=== PATIENT | male | born 1985 | race Caucasian/White ===

== ENCOUNTER 2023-06-29 21:05 | Emergency (ER) | payer SELFPAY ==
--- NOTE | 2023-06-29 21:22 | ED_ITS ---
HPI - General Adult General Chief complaint: Shortness of Breath/Dyspnea Stated complaint: TB EXPOSURE-COUGH Time Seen by Provider: 06/29/23 21:22 History of Present Illness HPI narrative: Patient presents to emergency department for possible tuberculosis exposure. Patient's son was exposed to his mom 3 weeks ago. He states the patient's mom did not have any cough or fever or anything such as a upper respiratory infection for respiratory problem however she was either tested for tuberculosis or had a skin condition which was found to be Mycobacterium for which she is being treated but she is noncontagious and has paperwork that she showed the patient that she is noncontagious. However the patient is concerned about the Possible exposure of his child and himself through his child. The patient himself denies any cough, fever, or chills. He states he has a history of ALLERGIES. Denies any shortness of breath. Denies any nausea, vomiting, diarrhea, abdominal pain, rashes. Related Data Home Medications Medication Instructions Recorded Confirmed No Known Home Medications 06/29/23 06/29/23 Allergies Allergy/AdvReac Type Severity Reaction Status Date / Time No Known Drug Allergies Allergy Verified 06/29/23 21:29 Review of Systems ROS Status of ROS 10 or more systems reviewed and unremarkable except as noted in history and below [facility] Social History Smoking status: Current every day smoker Exam Narrative Exam Narrative: Nurses notes and vital signs reviewed and patient is not hypoxic. General: Nontoxic, Well-appearing and in no apparent distress. Skin: Warm, dry, no pallor noted. No Rash Head: Normocephalic, atraumatic. Neck: Supple, non-tender. Eye: Pupils are equal, round and EOMI. No scleral icterus. Ears, Nose, Mouth, and Throat: TM clear, no posterior oropharynx erythema or nasal mucosal hypertrophy, uvula is mid-line Oral mucosa is moist Cardiovascular: Regular Rate and Rhythm without murmur, gallop or rub. Respiratory: No accessory muscle use or respiratory distress. Lungs are clear to auscultation, no wheezing, rales or rhonchi Chest Wall: no tenderness Back: No midline thoracic or lumbar vertebral tenderness. No CVA tenderness Musculoskeletal: normal ROM, no calf or popliteal tenderness, no lower extremity edema/swelling GI: Abdomen is soft, non-distended. Normal bowel sounds. No masses appreciated. No tenderness to palpation. No rebound, guarding, or rigidity noted. Neurological: A&O x4. No cranial nerve dysfunction observed. No truncal ataxia. Moves all extremities. Sensation intact. Psychiatric: Cooperative and interactive. Normal mood and affect. Constitutional Vital Signs, click to edit/add: Last Vital Signs Temp 98.2 F 06/29/23 21:25 Pulse 86 06/29/23 21:25 Resp 18 06/29/23 21:25 BP 129/94 H 06/29/23 21:25 Pulse Ox 97 06/29/23 21:25 O2 Del Method Room Air 06/29/23 21:25 Course Vital Signs Vital signs: Vital Signs Temperature 98.2 F 06/29/23 21:25 Pulse Rate 86 06/29/23 21:25 Respiratory Rate 18 06/29/23 21:25 Blood Pressure 129/94 H 06/29/23 21:25 Pulse Oximetry 97 06/29/23 21:25 Oxygen Delivery Method Room Air 06/29/23 21:25 Temperature 98.2 F 06/29/23 21:25 Pulse Rate 86 06/29/23 21:25 Respiratory Rate 18 06/29/23 21:25 Blood Pressure 129/94 H 06/29/23 21:25 Pulse Oximetry 97 06/29/23 21:25 Oxygen Delivery Method Room Air 06/29/23 21:25 Medical Decision Making MDM Narrative Medical decision making narrative: Chest x-ray was done and is unremarkable. I advised the patient follow up with primary care doctor in the health department to discuss skin test. At this time the patient is without objective evidence of an acute process requiring hospitalization or inpatient management. The patient has remained hemodynamically stable. No additional indication for emergent studies at this time. I answered all questions. Discussed discharge instructions including standard anticipatory guidance and what should prompt a return to the emergency department, including if they get worse are not getting better or develops any new or concerning symptoms. I've given them specific time frame in which to follow-up, and who to follow-up with. The patient demonstrates understanding. Patient is nontoxic and stable for discharge with outpatient follow-up. This note was created with the assistance of a speech recognition program. Although the intention is to generate documents that actually reflects the content of the visit, no guarantees can be provided that every mistake has been identified and corrected by editing. Discharge Plan Discharge Chief Complaint: Shortness of Breath/Dyspnea Clinical Impression: Tuberculosis contact Patient Disposition: Home, Self-Care Time of Disposition Decision: 23:07 Condition: Good Mode of Transportation: Private Vehicle Prescriptions / Home Meds: No Action No Known Home Medications Instructions: Tuberculosis (DC) Additional Instructions: Follow-up with primary care doctor or the local health department for tuberculosis skin test. Stand Alone Forms: Portal Instructions Referrals: Rea James MD [Primary Care Provider] - 1 week TIGRE RUIZ APRN [Physician] - 1 week BUDDY ROSA [Physician] - 1 week Discharge Date/Time: 06/29/23 23:17
--- NOTE | 2023-06-29 21:22 | XR_ITS ---
The [address] [address] Patient Name: EUGENE JHA MRN: [id number] date: 1985 Sex: M Assigned Patient Location: ED.MAIN Current Patient Location: ER Accession/Order Number: [id number] Exam Date: 06/29/2023 22:00 Report Date: 06/29/2023 22:51 At the request of: DIANA NIETO Procedure: XR chest 1V EXAM: XR chest 1V HISTORY: cough, tb exposure COMPARISON: None. TECHNIQUE: Single frontal view FINDINGS: The cardiovascular silhouette is normal. Lung garvin are well-expanded and clear. Pleural spaces are clear. The bony structures are unremarkable. XR/XR chest 1V IMPRESSION: No evidence for acute cardiopulmonary disease. Electronically authenticated by: Berhane COTTER Date: 06/29/2023 22:51
[2023-06-29 21:25] VITALS: BP 129/94; PULSE 86; RESP 18; TEMP 36.8; O2SAT 97; BMI 33.9
--- NOTE | 2023-06-29 22:31 | PC.NURSE ---
states his ex was recently diagnosed with TB, states he has had a cough for past 2 weeks and is not sure if that could be related to exposure or allergies. denies any other symptoms.
== END 2023-06-29 23:17 | disposition home or self-care (01) ==
PROVIDERS: Emergency Provider Emergency Medicine; PCP Specialist
DX: Z20.1 Contact with and (suspected) exposure to tuberculosis (principal); F17.210 Nicotine dependence, cigarettes, uncomplicated
CPT/HCPCS: 71045; 99283

== ENCOUNTER 2023-10-22 08:16 | Emergency (ER) | payer SELFPAY ==
[2023-10-22 08:22] VITALS: BP 118/88; PULSE 86; RESP 18; TEMP 36.8; O2SAT 98; BMI 33.9
--- NOTE | 2023-10-22 08:35 | ED.SKABFB1 ---
HPI - Skin/Abscess/Foreign Bdy General Chief complaint: Skin/Abscess/Foreign Body Stated complaint: RASh Time Seen by Provider: 10/22/23 08:18 Source: patient Mode of arrival: walk-in Limitations: no limitations History of Present Illness HPI narrative: 38-year-old male presents for rash on his hands and his feet. It's been there for a few days. He has none in his mouth, no fever. It's continuous. He is some [id number] medications but it didn't help. Related Data Home Medications Medication Instructions Recorded Confirmed No Known Home Medications 06/29/23 06/29/23 Allergies Allergy/AdvReac Type Severity Reaction Status Date / Time No Known Drug Allergies Allergy Verified 06/29/23 21:29 Review of Systems ROS Narrative A ten point review of systems is negative except as noted above. PFSH PFSH Social History Smoking status: Current some day smoker Exam Narrative Exam Narrative: Nurses note and vital signs reviewed and patient is not hypoxic. General: The patient appears well and in no apparent distress. Patient is resting comfortably on cart. Skin: Warm, dry, no pallor noted. There is erythematous rash present on the palms of his hands and the soles of his feet. None in his mouth. Head: Normocephalic, atraumatic Eye: Normal conjunctiva, no drainage Ears, Nose, Mouth, and Throat: oral mucosa is moist. Nares patent. Cardiovascular: Regular Rate and Rhythm Respiratory: Patient is in no distress, no accessory muscle use, lungs are clear to auscultation, no wheezing, rales or rhonchi Back: non-tender GI: soft and nontender Musculoskeletal: The patient has no evidence of calf tenderness, no pitting edema, symmetrical pulses noted bilaterally Neurological: A&O, normal speech Psychiatric: Cooperative Constitutional Vital Signs, click to edit/add: Last Vital Signs Temp 98.2 F 10/22/23 08:22 Pulse 86 10/22/23 08:22 Resp 18 10/22/23 08:22 BP 118/88 10/22/23 08:22 Pulse Ox 98 10/22/23 08:22 O2 Del Method Room Air 10/22/23 08:22 Course Vital Signs Vital signs: Vital Signs Temperature 98.2 F 10/22/23 08:22 Pulse Rate 86 10/22/23 08:22 Respiratory Rate 18 10/22/23 08:22 Blood Pressure 118/88 10/22/23 08:22 Pulse Oximetry 98 10/22/23 08:22 Oxygen Delivery Method Room Air 10/22/23 08:22 Temperature 98.2 F 10/22/23 08:22 Pulse Rate 86 10/22/23 08:22 Respiratory Rate 18 10/22/23 08:22 Blood Pressure 118/88 10/22/23 08:22 Pulse Oximetry 98 10/22/23 08:22 Oxygen Delivery Method Room Air 10/22/23 08:22 MDM - Skin/Abscess/Foreign Bdy MDM Narrative Medical decision making narrative: my clinical impression is that the patient and his hand foot and mouth disease. Treatment diagnosis and follow-up were discussed with the patient. Differential Diagnosis Differential diagnosis: Likely abscess of skin or subcutaneous tissue, viral exanthem and urticaria Discharge Plan Discharge Chief Complaint: Skin/Abscess/Foreign Body Clinical Impression: Hand, foot and mouth disease Patient Disposition: Home, Self-Care Time of Disposition Decision: 08:34 Condition: Good Mode of Transportation: Private Vehicle Prescriptions / Home Meds: No Action No Known Home Medications Instructions: Hand, Foot, and Mouth Disease (ED) Stand Alone Forms: Portal Instructions Referrals: Physician,Non-Staff, MD [Primary Care Provider] - 1 week
== END 2023-10-22 08:40 | disposition home or self-care (01) ==
PROVIDERS: Emergency Provider Emergency Medicine
DX: B08.4 Enteroviral vesicular stomatitis with exanthem (principal); F17.210 Nicotine dependence, cigarettes, uncomplicated
CPT/HCPCS: 99281

== ENCOUNTER 2024-03-06 21:43 | Emergency (ER) | payer SELFPAY ==
[2024-03-06 21:46] VITALS: BP 149/82; PULSE 120; TEMP 38.2; O2SAT 98; BMI 34.9
--- OUTSIDE RECORDS SUMMARY | 2024-03-06 21:49 | XMS_ITS | CCD ---
Author Organization [facility] Care Team Providers Care Director Of Construction Name Role Phone Chloe Graff Unavailable KatelynStephenie sanches Unavailable DR ENID GUERRERO Primary Care Unavailable RABIA ., DR DELGADILLO Admitting Unavailable RABIA ., DR DELGADILLO Consulting Unavailable RABIA Harrell, DR DELGADILLO Attending Unavailable LAXMI ., DR ENID Lee Primary Care Unavailable SIENNA POON Admitting Unavailable SIENNA POON Consulting Unavailable SIENNA POON Attending Unavailable Michelle Pak Attending Unavailable Allergies Allergy Classification Reported Allergen(s) Allergy Type Date of Onset Reaction(s) Facility (1 source) No Known Medication Allergies; Translations: [No Known Medication Allergies] Propensity to adverse reactions (disorder) [facility] Repository Medications Current Medications Medication Drug Class(es) Dates Sig (Normalized) Sig (Original) brompheniramine maleate 0.4 mg/ml / dextromethorphan hydrobromide 2 mg/ml / pseudoephedrine hydrochloride 6 mg/ml oral solution (1 source) alpha-Adrenergic Agonist, Uncompetitive G-fabsat-N-aspartat e Receptor Antagonist, Sigma-1 Agonist Start: 10-03-2022 take 10 mL by mouth every six hours Pseudoeph-Bromp hen-DM 30-2-10 MG/5ML 10 mL Orally every 6 hours for 5 days Sep, Active Problems Active Problems Problem Classification Problem Date Documented Da te Episodic/Chronic Inflammation; infection of eye (except that caused by tuberculosis or sexually transmitteddisease) (1 source) Other mucopurulent conjunctivitis, right eye; Translations: [OTH MUCOPURULNT CONJUNCTIVIT RT EYE] Onset: 04-08-2023 Episodic Other eye disorders (3 sources) Other specified disorders of eye and adnexa; Translations: [OTHER SPEC DISORDERS EYE AND ADNEXA] Onset: 04-07-2023 Episodic Other lower respiratory disease (2 sources) Cough; Translations: [Cough] Episodic Other upper respiratory infections (2 sources) Acute upper respiratory infection, unspecified Episodic Substance-related disorders (2 sources) Nicotine dependence, cigarettes, uncomplicated; Translations: [NICOTINE DEPEND CIGARETTES UNCOMP] Onset: 09-01-2022 Chronic Past or Other Problems Problem Classification Problem Date Documented Date Episodic/Chronic Nausea and vomiting (3 sources) Nausea with vomiting, unspecified; Translations: [NAUSEA WITH VOMITING UNSPECIFIED] Onset: 08-29-2022 Episodic Noninfectious gastroenteritis (1 source) Noninfective gastroenteritis and colitis, unspecified; Translations: [NONINFECTIVE GE AND COLITIS UNS] Onset: 09-01-2022 Episodic Unclassified (2 sources) Exposure to acute respiratory syndrome coronavirus 2; Translations: [Contact with and (suspected) exposure to covid-19] Unclassified (2 sources) Cough R05.9 Results Test Name Value Interpretation Reference Range Facil ity RAD - MISCon 06-30-2023 RAD - MISC [id number]: 127 Normal [facility] COVID + FLU Quick Testingon 11-08-2022 SARS-CoV-2 (COVID-19) RNA YURIDIA+probe Ql (Unsp spec) Negative [email or web address] Other COVID + FLU Quick Testing Negative [email or web address] Other COVID Quick Testingon 2021 Result Negative [email or web address] Other Vital Signs Date Time Vital Sign Value Performing Clinician Facility 11-08-2022 12:45-0500 Body height 165.1 cm Stephenie Zepeda Other [email or web address] Other 11-08-2022 12:45-0500 Body mass index (BMI) [Ratio] 33.78 kg/m2 Stephenie Zepeda Other [email or web address] Other 11-08-2022 12:45-0500 Body temperature 96.7 [degF] Stephenie Zepeda Other [email or web address] Other 11-08-2022 12:45-0500 Body weight 92.08 kg Stephenie Zepeda Other [email or web address] Other 11-08-2022 12:45-0500 Respiratory rate 18 /min Stephenie Zepeda Other [email or web address] Other 11-08-2022 12:45-0500 SaO2% (BldA) [Mass fraction] 99 % Stephenie Zepeda Other [email or web address] Other 10-03-2022 11:50-0400 Body height 165.1 cm Chloe Graff Other [email or web address] Other 10-03-2022 11:50-0400 Body mass index (BMI) [Ratio] 33.78 kg/m2 Chloe Graff Other [email or web address] Other 10-03-2022 11:50-0400 Body temperature 98.1 [degF] Chloe Graff Other [email or web address] Other 10-03-2022 11:50-0400 Body weight 92.08 kg Chloe Graff Other [email or web address] Other 10-03-2022 11:50-0400 Respiratory rate 18 /min Chloe Graff Other [email or web address] Other 10-03-2022 11:50-0400 SaO2% (BldA) [Mass fraction] 97 % Chloe Graff Other [email or web address] Other Encounters Encounter Date Encounter Type Care Provider Facility Start: 04-07-2023 End: 04-07-[address] ENID HAIR . Facility: Start: 03-02-2023 End: 03-03-2023 ambulatory Michelle L Pasha [facility] Start: 02-24-2023 ambulatory Michelle Pasha Facility:[facility] Start: 11-08-2022 End: 11-08-2022 ambulatory Stephenie Zepeda Other [email or web address] Other Start: 11-08-2022 Office outpatient vi sit 25 minutes Stephenie Katelyn [facility] Start: 10-03-2022 End: 10-03-2022 ambulatory Chloe Graff Other [email or web address] Other Start: 10-03-2022 Office outpatient vi sit 25 minutes Chloe Graff [facility] Start: 08-29-2022 End: 08-29-[address] ENID HAIR . Facility: Payers Date Payer Category Payer Unknown [id number] [id number] 1985 Unknown [id number] 1985 Unknown [id number] 1985 Unknown [id number] 1960 Self-pay [id number] Self-pay Social History Date Type Detail Facility Unknown if ever smoked [email or web address] Other Sex Assigned At Sex Assigned At Bir th [email or web address] Other Evaluation note 11-08-2022 Note Date & Type Note Facility 11-08-2022 Evaluation note Encounter Date Diagnosis Assessment Notes Oct, Cough (ICD-10 - R05.9) Oct, Viral upper respiratory infection (ICD-10 - J06.9) Viral upper respiratory infection: adult home care material was printed Drink plenty fluids, get plenty of rest. Take Tylenol or Motrin as needed for aches pains or fevers. Follow-up with your family physician if no improvement in 2 to 3 days [email or web address] Other Evaluation note 10-03-2022 Note Date & Type Note Facility 10-03-2022 Evaluation note Encounter Date Diagnosis Assessment Notes Sep, Cough (ICD-10 - R05.9) Sep, Viral URI (ICD-10 - J06.9) Advised patient that rapid COVID antigen test was negative today. Advised patient that will treat as viral URI. Supportive care as directed, increase fluids and rest, Tylenol/Motrin as directed, rx of Bromfed cool mist humidifier, throat lozenges. Discussed infection control practices such as good hand washing and mask wearing. Patient to follow up with PCP if symptoms persist or worsen despite treatment. Immediate eval for SOB, difficulty, chest pain, fevers that do not break with antipyretic or any other concerning symptoms as reviewed on patient education handout. Patient verbalizes understanding and is agreeable to treatment plan. Patient left in stable condition [email or web address] Other Summary Purpose Family History No Family History Records FoundNo Family History Records Found Advance Directives No Advanced Directives Records FoundNo Advanced Directives Records Found Additional Source Comments REASON FOR VISIT (unrecogniz ed section and content) SORE THROAT, NAUSEA, FEVERWH ITE MALIBU, COUGH, SORE THROAT, FEVER, CONGESTION (unrecognized sect ion and content) No Status Records FoundNo Status Records Found INFORMATION SOURCE (unrecogn ized section and content) DATE CREATED AUTHOR 04/09/2023 [facility] DATE CREATED AUTHOR AUTHOR'S ORGANIZ ATION 06/30/2023 [facility] FOR RECORDS PERTAINING TO PATIENTS WHO ARE OR HAVE BEEN ENROLLED IN A CHEMICAL DEPENDENCY/SUBSTANCEABUSE PROGRAM, SOME INFORMATION MAY BE OMITTED. This clinical summary was aggregated from multiple sources. Caution should be exercised in using it in the provision of clinical care. This summary normalizes information from multiple sources, and as a consequence, information in this document may materially change the coding, format and clinical context of patient data. In addition, data may be omitted in some cases. CLINICAL DECISIONS SHOULD BE BASED ON THE PRIMARY CLINICAL RECORDS. [employer] [facility]. provides no warranty or guarantee of the accuracy or completeness of information in this document.
--- NOTE | 2024-03-06 22:47 | ED.GENADUL1 ---
HPI HPI - General Adult General Chief complaint: Upper Respiratory Infection Stated complaint: FLU LIKE SYMPTOMS Time Seen by Provider: 03/06/24 22:43 Source: patient and family Mode of arrival: walk-in Limitations: no limitations History of Present Illness HPI narrative: patient presents complaining of flu like symptoms. States similar symptoms at least 3 times in the past couple of weeks. [place] well last PM and then today vomiting and diarrhea. Last episode of diarrhea this AM but recurrent nausea and vomiting during the day. No nausea currently. Has body aches and fever. No cough. Related Data Home Medications ?Medication ?Instructions ?Recorded ?Confirmed No Known Home Medications 06/29/23 03/06/24 Allergies Allergy/AdvReac Type Severity Reaction Status Date / Time No Known Drug Allergies Allergy Verified 03/06/24 21:46 Opioid HPI Opioid Management Most Recent Opioid Data: Last Pain Scale 5 03/06/24 22:21 Last ED Pain Assessment 03/06/24 22:21 Last MAR Pain Assessment 03/07/24 00:16 Review of Systems ROS Status of ROS 10 or more systems reviewed and unremarkable except as noted in history and below PFSH PFS Social History Smoking status: Current some day smoker Exam Constitutional Vital Signs, click to edit/add: Last Vital Signs Temp 99.9 F 03/07/24 01:12 Pulse 114 H 03/07/24 01:12 Resp 16 03/07/24 01:12 BP 120/80 03/07/24 01:12 Pulse Ox 96 03/07/24 01:12 O2 Del Method Room Air 03/07/24 01:12 Common normals: no apparent distress, average body habitus, oriented x3, no limitations, healthy appearing, alert and well nourished [facility] Common normals: normocephalic and head/scalp atraumatic Eye Common normals: EOMs intact bilaterally and conjunctivae normal Respiratory Common normals: normal respiratory effort, no retractions and no use of accessory muscles Cardio Common normals: regular rate, regular rhythm, S1 normal heart sound and S2 normal heart sound GI Common normals: Normal to inspection, nondistended, normoactive bowel sounds present, soft to palpation and non-tender Extremity Common normals: normal to inspection and full ROM Neuro Common normals: oriented x3, CN's II-XII intact bilaterally, moves all extremities and no focal motor deficits Psych Appearance: grossly normal Course Vital Signs Vital signs: Vital Signs Temperature 100.7 F H 03/06/24 21:46 Pulse Rate 120 H 03/06/24 21:46 Respiratory Rate 20 03/06/24 21:46 Blood Pressure 149/82 H 03/06/24 21:46 Pulse Oximetry 98 03/06/24 21:46 Oxygen Delivery Method Room Air 03/06/24 21:46 Temperature 99.9 F 03/07/24 01:12 Pulse Rate 114 H 03/07/24 01:12 Respiratory Rate 16 03/07/24 01:12 Blood Pressure 120/80 03/07/24 01:12 Pulse Oximetry 96 03/07/24 01:12 Oxygen Delivery Method Room Air 03/07/24 01:12 Medical Decision Making MDM Narrative Medical decision making narrative: patient presents with abdominal cramping and vomiting diarrhea. Diarrhea has eased off but vomiting several times today before coming in. Abdomen nontender. labs with leukocytosis, dehydration and elevated lactic acid. Lactic acid normal after hydration. Nausea controlled with zofran. No recurrence of diarrhea. Patient feeling better after hydration and discharged with working diagnosis of gastroenteritis and is advised to followup with his doctor for recheck Lab Data Labs: Lab Results 03/06/24 03/06/24 03/06/24 Range/Units 21:50 22:00 23:36 WBC 19.5 H (4.0-11.0) 10^3/uL RBC 5.22 (4.70-6.10) 10^6/uL Hgb 16.0 (14.0-18.0) g/dL Hct 47.6 (42.0-54.0) % MCV 91.2 (80.0-94.0) fL MCH 30.7 (25.9-34.0) pg MCHC 33.6 (29.9-35.2) g/dL RDW 13.7 (11.0-15.0) % Plt Count 274 (150-450) 10^3/uL MPV 10.5 (9.5-13.5) fL Neut % (Auto) 88.4 H (43.0-75.0) % Lymph % (Auto) 4.3 L (20.5-60.0) % [place] % (Auto) 6.4 (1.7-12.0) % Eos % (Auto) 0.0 L (0.9-7.0) % Baso % (Auto) 0.4 (0.2-2.0) % Neut # (Auto) 17.3 H (1.4-6.5) 10^3/uL Lymph # (Auto) 0.8 L (1.2-3.8) 10^3/uL [place] # (Auto) 1.3 H (0.3-0.8) 10^3/uL Eos # (Auto) 0.0 (0.0-0.7) 10^3/uL Baso # (Auto) 0.1 (0.0-0.1) 10^3/uL Abs Immat Gran (auto) 0.09 H (0.00-0.03) 10^3/uL Imm/Tot Granulo (auto) 0.5 (0.0-0.5) % Sodium 139 (136-145) mmol/L Potassium 4.0 (3.5-5.1) mmol/L Chloride 101 (98-107) mmol/L Carbon Dioxide 23.3 (21.0-32.0) mmol/L Anion Gap 18.7 BUN 12.0 (7.0-18.0) mg/dL Creatinine 1.17 (0.70-1.30) mg/dL Est GFR ( Amer) >60 (>=60) Est GFR (Non-Af Amer) >60 (>=60) BUN/Creatinine Ratio 10.3 Glucose 114 H (74-106) mg/dL Lactate 3.0 H* (0.4-2.0) mmol/L Calcium 9.8 (8.5-10.1) mg/dL Total Bilirubin 0.8 (0.2-1.0) mg/dL AST 108 H (15-37) U/L ALT 157 H (16-63) U/L Alkaline Phosphatase 88 (46-116) U/L Total Protein 8.2 (6.4-8.2) g/dL Albumin 4.2 (3.4-5.0) g/dL Globulin 4.0 g/dL Albumin/Globulin Ratio 1.0 Urine Color Yellow (YELLOW) Urine Clarity Clear (CLEAR) Urine pH 6.0 (5.0-9.0) Ur Specific [place] >=1.030 A (1.005-1.025) Urine Protein 30 A (NEG/TRACE) mg/dL Urine Glucose (UA) Negative (NEGATIVE) mg/dL Urine Ketones Negative (NEGATIVE) mg/dL Urine Occult Blood Negative (NEGATIVE) Urine Nitrite Negative (NEGATIVE) Urine Bilirubin Negative (NEGATIVE) Urine Urobilinogen 1.0 (0.2-1.0) EU/dL Ur Leukocyte Esterase Negative (NEGATIVE) Urine RBC 0-2 (0-2) #/HPF Urine WBC 0-2 A (NONE SEEN) #/HPF Ur Squamous Epith Cells Rare (NONE/RARE) #/LPF Urine Crystals None seen (None Seen) #/HPF Urine Bacteria Trace A (NONE SEEN) #/HPF Urine Casts None seen (NONE SEEN) #/LPF Urine Mucus Moderate A (NONE SEEN) Ur Culture Indicated? No Influenza Type A Ag Negative Influenza Type B Ag Negative SARS-CoV-2 Ag (CV2AG) Negative (NEGATIVE) 03/07/24 Range/Units 00:55 WBC (4.0-11.0) 10^3/uL RBC (4.70-6.10) 10^6/uL Hgb (14.0-18.0) g/dL Hct (42.0-54.0) % MCV (80.0-94.0) fL MCH (25.9-34.0) pg MCHC (29.9-35.2) g/dL RDW (11.0-15.0) % Plt Count (150-450) 10^3/uL MPV (9.5-13.5) fL Neut % (Auto) (43.0-75.0) % Lymph % (Auto) (20.5-60.0) % [place] % (Auto) (1.7-12.0) % Eos % (Auto) (0.9-7.0) % Baso % (Auto) (0.2-2.0) % Neut # (Auto) (1.4-6.5) 10^3/uL Lymph # (Auto) (1.2-3.8) 10^3/uL [place] # (Auto) (0.3-0.8) 10^3/uL Eos # (Auto) (0.0-0.7) 10^3/uL Baso # (Auto) (0.0-0.1) 10^3/uL Abs Immat Gran (auto) (0.00-0.03) 10^3/uL Imm/Tot Granulo (auto) (0.0-0.5) % Sodium (136-145) mmol/L Potassium (3.5-5.1) mmol/L Chloride (98-107) mmol/L Carbon Dioxide (21.0-32.0) mmol/L Anion Gap BUN (7.0-18.0) mg/dL Creatinine (0.70-1.30) mg/dL Est GFR ( Amer) (>=60) Est GFR (Non-Af Amer) (>=60) BUN/Creatinine Ratio Glucose (74-106) mg/dL Lactate 1.6 (0.4-2.0) mmol/L Calcium (8.5-10.1) mg/dL Total Bilirubin (0.2-1.0) mg/dL AST (15-37) U/L ALT (16-63) U/L Alkaline Phosphatase (46-116) U/L Total Protein (6.4-8.2) g/dL Albumin (3.4-5.0) g/dL Globulin g/dL Albumin/Globulin Ratio Urine Color (YELLOW) Urine Clarity (CLEAR) Urine pH (5.0-9.0) Ur Specific [place] (1.005-1.025) Urine Protein (NEG/TRACE) mg/dL Urine Glucose (UA) (NEGATIVE) mg/dL Urine Ketones (NEGATIVE) mg/dL Urine Occult Blood (NEGATIVE) Urine Nitrite (NEGATIVE) Urine Bilirubin (NEGATIVE) Urine Urobilinogen (0.2-1.0) EU/dL Ur Leukocyte Esterase (NEGATIVE) Urine RBC (0-2) #/HPF Urine WBC (NONE SEEN) #/HPF Ur Squamous Epith Cells (NONE/RARE) #/LPF Urine Crystals (None Seen) #/HPF Urine Bacteria (NONE SEEN) #/HPF Urine Casts (NONE SEEN) #/LPF Urine Mucus (NONE SEEN) Ur Culture Indicated? Influenza Type A Ag Influenza Type B Ag SARS-CoV-2 Ag (CV2AG) (NEGATIVE) Discharge Plan Discharge Stand Alone Forms: Portal Instructions Chief Complaint: Upper Respiratory Infection Clinical Impression: Gastroenteritis Patient Disposition: Home, Self-Care Prescriptions / Home Meds: No Action No Known Home Medications Print Language: Mauritanian Instructions: Gastroenteritis (ED) Additional Instructions: follow up with family doctor in a couple of days Referrals: Physician,Non-Staff, MD [Primary Care Provider] - 1 week
--- NOTE | 2024-03-06 22:50 | XR_ITS ---
The [address] [address] Patient Name: EUGENE JHA MRN: [id number] date: 1985 Sex: M Assigned Patient Location: ER Current Patient Location: ER Accession/Order Number: [id number] Exam Date: 03/06/2024 23:10 Report Date: 03/07/2024 00:03 At the request of: SIENNA POON Procedure: XR chest 1V EXAM: XR chest 1V HISTORY: The patient is a 38-year-old male with cough COMPARISON: 06/29/2023. FINDINGS: There is persistent elevation of the right hemidiaphragm. Allowing for this the lungs are well-inflated and clear with no confluent airspace infiltrates, pleural effusions, or pneumothoraces. The heart and mediastinum are within normal limits. The trachea is midline. XR/XR chest 1V IMPRESSION: No acute cardiopulmonary abnormalities. Electronically authenticated by: KIMI CRAIG Date: 03/07/2024 00:03
[2024-03-06 22:55] LABS: Basophils Absolute Auto 0.1 10^3/uL (0.0-0.1); Basophils Percent Auto 0.4 % (0.2-2.0); Hematocrit 47.6 % (42.0-54.0); Immature Granulocytes Abs Auto 0.09 10^3/uL (0.00-0.03); Immature Granulocytes Pct Auto 0.5 % (0.0-0.5); Lymphocytes Absolute Auto 0.8 10^3/uL (1.2-3.8); Lymphocytes Percent Auto 4.3 % (20.5-60.0); Mean Corpuscular HGB Conc 33.6 g/dL (29.9-35.2); Mean Corpuscular Hemoglobin 30.7 pg (25.9-34.0); Mean Corpuscular Volume 91.2 fL (80.0-94.0); Mean Platelet Volume 10.5 fL (9.5-13.5); Monocytes Absolute Auto 1.3 10^3/uL (0.3-0.8); Monocytes Percent Auto 6.4 % (1.7-12.0); Neutrophils Absolute Auto 17.3 10^3/uL (1.4-6.5); Neutrophils Percent Auto 88.4 % (43.0-75.0); Platelet Count 274 10^3/uL (150-450); Red Blood Count 5.22 10^6/uL (4.70-6.10); Red Cell Distribution Width 13.7 % (11.0-15.0); White Blood Count 19.5 10^3/uL (4.0-11.0)
[2024-03-06 23:08] LABS: Alanine Aminotransferase 157 U/L (16-63); Albumin Level 4.2 g/dL (3.4-5.0); Alkaline Phosphatase 88 U/L (46-116); Anion Gap 18.7; Aspartate Amino Transferase 108 U/L (15-37); BUN Creatinine Ratio 10.3; Bilirubin Total 0.8 mg/dL (0.2-1.0); Calcium 9.8 mg/dL (8.5-10.1); Carbon Dioxide 23.3 mmol/L (21.0-32.0); Chloride 101 mmol/L (98-107); Estimated GFR (African America >60 (>=60); Estimated GFR (Non-African Ame >60 (>=60); Glucose 114 mg/dL (74-106); Sodium 139 mmol/L (136-145); Total Protein 8.2 g/dL (6.4-8.2)
[2024-03-06 23:09] LABS: Influenza Virus A Antigen Negative; Influenza Virus B Antigen Negative; Internal Control Within Normal Limits; SARS-CoV-2 Ag NEGATIVE (NEGATIVE)
[2024-03-06] MEDS: ONDANSETRON PF 4 MG/2 ML VIAL IV (23:31)
[2024-03-06] MEDS: 0.9 % SODIUM CHLORIDE 1,000 ML 999 ML IV (23:31)
[2024-03-06 23:55] LABS: Bilirubin Urine NEGATIVE (NEGATIVE); Blood Urine NEGATIVE (NEGATIVE); Clarity Urine CLEAR (CLEAR); Color Urine YELLOW (YELLOW); Glucose Urine UA NEGATIVE (NEGATIVE); Ketones Urine NEGATIVE (NEGATIVE); Leukocyte Esterase Urine NEGATIVE (NEGATIVE); Nitrite Urine NEGATIVE (NEGATIVE); Protein Urine 30 mg/dL (NEG/TRACE); Specific Gravity Urine >=1.030 (1.005-1.025)
[2024-03-06 23:56] LABS: Urine Microscopic Indicated YES
[2024-03-06 23:59] VITALS: BP 120/80; PULSE 114; TEMP 39.1; O2SAT 94
[2024-03-07 00:03] LABS: Bacteria Urine TRACE #/HPF (NONE SEEN); Cast Seen? NONE SEEN #/LPF (NONE SEEN); Crystals Seen? None Seen #/HPF (None Seen); Mucus Urine MODERATE (NONE SEEN); RBC Urine 0-2 #/HPF (0-2); Squamous Epithelial Cell Urine RARE #/LPF (NONE/RARE); Urine Culture Indicated NO; WBC Urine 0-2 #/HPF (NONE SEEN)
[2024-03-07 00:16] VITALS: TEMP 39.1
[2024-03-07] MEDS: KETOROLAC TROMETHAMINE 30 MG/ML VIAL IVP (00:16)
[2024-03-07] MEDS: 0.9 % SODIUM CHLORIDE 1,000 ML 999 ML IV (01:09)
[2024-03-07 01:12] VITALS: BP 120/80; PULSE 114; TEMP 37.7; O2SAT 96
[2024-03-07 01:19] LABS: Lactate/Lactic Acid 1.6 mmol/L (0.4-2.0)
== END 2024-03-07 01:40 | disposition home or self-care (01) ==
PROVIDERS: Emergency Provider Internal Medicine
DX: K52.9 Noninfective gastroenteritis and colitis, unspecified (principal); Z20.822 Contact with and (suspected) exposure to COVID-19
CPT/HCPCS: 36415; 71045; 80053; 81001; 83605; 85025; 87804; 87811; 96361; 96374; 96375; 99284

== ENCOUNTER 2024-03-08 01:07 | Emergency (ER) | payer SELFPAY ==
[2024-03-08 01:18] VITALS: BP 145/98; PULSE 66; TEMP 36.8; O2SAT 96
--- OUTSIDE RECORDS SUMMARY | 2024-03-08 01:21 | XMS_ITS | CCD ---
Author Organization [facility] Care Team Providers Care Excel Analyst Name Role Phone Chloe Graff Unavailable KatelynStephenie [...] Medication Allergies] Propensity to adverse reactions (disorder) [facility] Repository Medications Current Medications Medication Drug Class(es) Dates Sig (Normalized) Sig (Original) brompheniramine maleate 0.4 mg/ml / dextromethorphan hydrobromide 2 mg/ml / pseudoephedrine hydrochloride 6 mg/ml oral solution (1 source) alpha-Adrenergic Agonist, Uncompetitive H-cgqhjs-W-aspartat e Receptor Antagonist, Sigma-1 Agonist Start: 10-03-2022 [...] - MISCon 06-30-2023 RAD - MISC [id number]: 127 Normal [facility] COVID + FLU Quick Testingon 11-08-2022 SARS-CoV-2 (COVID-19) RNA YURIDIA+probe Ql (Unsp spec) Negative [email or web address] Other COVID + FLU Quick Testing Negative [email or web address] Other COVID Quick Testingon 2021 Result Negative [email or web address] Other Vital Signs Date Time Vital Sign Value Performing Clinician Facility 11-08-2022 12:45-0500 Body height 165.1 cm Stephenie Zepeda Other [email or web address] Other 11-08-2022 12:45-0500 Body mass index (BMI) [Ratio] 33.78 kg/m2 Stephenie Zepeda Other [email or web address] Other 11-08-2022 12:45-0500 Body temperature 96.7 [degF] Stephenie Zepeda Other [email or web address] Other 11-08-2022 12:45-0500 Body weight 92.08 kg Stephenie Zepeda Other [email or web address] Other 11-08-2022 12:45-0500 Respiratory rate 18 /min Stephenie Zepeda Other [email or web address] Other 11-08-2022 12:45-0500 SaO2% (BldA) [Mass fraction] 99 % Stephenie Zepeda Other [email or web address] Other 10-03-2022 11:50-0400 Body height 165.1 cm Chloe Graff Other [email or web address] Other 10-03-2022 11:50-0400 Body mass index (BMI) [Ratio] 33.78 kg/m2 Chloe Graff Other [email or web address] Other 10-03-2022 11:50-0400 Body temperature 98.1 [degF] Chloe Graff Other [email or web address] Other 10-03-2022 11:50-0400 Body weight 92.08 kg Chloe Graff Other [facility] Other 10-03-2022 11:50-0400 Respiratory rate 18 /min Chloe Graff Other [email or web address] Other 10-03-2022 11:50-0400 SaO2% (BldA) [Mass fraction] 97 % Chloe Graff Other [email or web address] Other Encounters Encounter Date Encounter Type Care Provider Facility Start: 04-07-2023 End: 04-07-[address] ENID HAIR . Facility: Start: 03-02-2023 End: 03-03-2023 ambulatory Michelle L Pasha Facility:[facility] Start: 02-24-2023 ambulatory Michelle Pasha Facility:[facility] Start: 11-08-2022 End: 11-08-2022 ambulatory Stephenie Zepeda Other [email or web address] Other Start: 11-08-2022 Office outpatient vi sit 25 minutes Stephenie Katelyn [facility] Start: 10-03-2022 End: 10-03-2022 ambulatory Chloe Graff Other [email or web address] Other Start: 10-03-2022 Office outpatient vi sit 25 minutes Chloe Graff [facility] Start: 08-29-2022 End: 08-29-[address] ENID HAIR . Facility: Payers Date Payer Category Payer Unknown [id number] [id number] [id number] 1985 Unknown [id number] 1985 Unknown [id number] 1985 Unknown [id number] 1960 Self-pay [id number] Self-pay Social History Date Type Detail Facility Unknown if ever smoked [email or web address] Other Sex Assigned At Sex Assigned At Bir th [email or web address] Other Evaluation note 11-08-2022 Note Date & [...] no improvement in 2 to 3 days [email or web address] Other Evaluation note 10-03-2022 Note Date & [...] treatment plan. Patient left in stable condition [email or web address] Other Summary Purpose Family History No Family [...] DATE CREATED AUTHOR AUTHOR'S ORGANIZ ATION 06/30/2023 [facility] FOR RECORDS PERTAINING TO PATIENTS WHO [...] BE BASED ON THE PRIMARY CLINICAL RECORDS. [facility]. provides no warranty or guarantee of the accuracy or completeness of information in this document.
[2024-03-08 01:29] LABS: Adenovirus NOT DETECTED (NOT DETECTE); Bordetella parapertussis NOT DETECTED (NOT DETECTE); Coronavirus 229E NOT DETECTED (NOT DETECTE); Coronavirus HKU1 NOT DETECTED (NOT DETECTE); Coronavirus NL63 NOT DETECTED (NOT DETECTE); Coronavirus OC43 NOT DETECTED (NOT DETECTE); Human Metapneumovirus NOT DETECTED (NOT DETECTE); Human Rhinovirus/Enterovirus NOT DETECTED (NOT DETECTE); Influenza A NOT DETECTED (NOT DETECTE); Influenza B NOT DETECTED (NOT DETECTE); Mycoplasma pneumoniae NOT DETECTED (NOT DETECTE); Parainfluenza Virus 1 NOT DETECTED (NOT DETECTE); Parainfluenza Virus 2 NOT DETECTED (NOT DETECTE); Parainfluenza Virus 3 NOT DETECTED (NOT DETECTE); Parainfluenza Virus 4 NOT DETECTED (NOT DETECTE); Respiratory Syncytial Virus NOT DETECTED (NOT DETECTE); SARS-CoV-2 NOT DETECTED (NOT DETECTE)
--- NOTE | 2024-03-08 01:57 | ED.FEVER1 ---
HPI - Fever General Chief Complaint: Fever Stated Complaint: FEVER Time Seen by Provider: 03/08/24 01:26 History of Present Illness HPI Narrative: patient seen yesterday for vomiting and fever. Hydrated and treated with anti emetics and discharged. states no longer vomiting but did have elevated fever at home which concerned him and so he returned. Arrives here asymptomatic. No abdominal pain, no cough or headache. Related Data Home Medications ?Medication ?Instructions ?Recorded ?Confirmed No Known Home Medications 06/29/23 03/08/24 Allergies Allergy/AdvReac Type Severity Reaction Status Date / Time No Known Drug Allergies Allergy Verified 03/08/24 01:22 Review of Systems ROS Status of ROS 10 or more systems reviewed and unremarkable except as noted in history and below [facility] Social History Smoking status: Current some day smoker Exam Constitutional Vital Signs, click to edit/add: Last Vital Signs Temp 98.3 F 03/08/24 01:18 Pulse 66 03/08/24 01:18 Resp 18 03/08/24 01:18 BP 145/98 H 03/08/24 01:18 Pulse Ox 96 03/08/24 01:18 O2 Del Method Room Air 03/08/24 01:18 Common normals: no apparent distress, average body habitus, oriented x3, no limitations, healthy appearing, alert and well nourished [facility] Common normals: normocephalic and head/scalp atraumatic Eye Common normals: PERRL, EOMs intact bilaterally and conjunctivae normal Respiratory Common normals: normal respiratory effort, no retractions, no use of accessory muscles and clear to auscultation bilaterally Cardio Common normals: regular rate, regular rhythm, S1 normal heart sound and S2 normal heart sound GI Common normals: Normal to inspection, nondistended, normoactive bowel sounds present, soft to palpation and non-tender Extremity Common normals: normal to inspection and full ROM Neuro Common normals: oriented x3, CN's II-XII intact bilaterally, moves all extremities and no focal motor deficits Psych Appearance: grossly normal Course Vital Signs Vital signs: Vital Signs Temperature 98.3 F 03/08/24 01:18 Pulse Rate 66 03/08/24 01:18 Respiratory Rate 18 03/08/24 01:18 Blood Pressure 145/98 H 03/08/24 01:18 Pulse Oximetry 96 03/08/24 01:18 Oxygen Delivery Method Room Air 03/08/24 01:18 Temperature 98.3 F 03/08/24 01:18 Pulse Rate 66 03/08/24 01:18 Respiratory Rate 18 03/08/24 01:18 Blood Pressure 145/98 H 03/08/24 01:18 Pulse Oximetry 96 03/08/24 01:18 Oxygen Delivery Method Room Air 03/08/24 01:18 MDM - Fever MDM Narrative Medical decision making narrative: patient seen last PM for gastroenteritis and fever. Now returns afebrile complaining of fever. Admits to no recurrence of vomiting and he feels well other than the fever he had at home. Lab testing performed and is improved from last PM. Patient's PE is normal . Reassured and discharged home to follow up with his family doctor Lab Data Labs: Lab Results 03/08/24 03/08/24 Range/Units 01:25 02:09 WBC 15.5 H (4.0-11.0) 10^3/uL RBC 4.76 (4.70-6.10) 10^6/uL Hgb 14.6 (14.0-18.0) g/dL Hct 43.6 (42.0-54.0) % MCV 91.6 (80.0-94.0) fL MCH 30.7 (25.9-34.0) pg MCHC 33.5 (29.9-35.2) g/dL RDW 13.7 (11.0-15.0) % Plt Count 180 (150-450) 10^3/uL MPV 9.8 (9.5-13.5) fL Seg Neuts % (Manual) 71.0 Band Neutrophils % 5.0 (0-5) % Lymphocytes % (Manual) 10.0 L (20.5-60.0) % Atypical Lymphs % (Man) 1.0 % Monocytes % (Manual) 13.0 H (1.7-12.0) % Eosinophils % (Manual) 0.0 L (0.9-7.0) % Basophils % (Manual) 0.0 L (0.2-2.0) % Neutrophils # (Manual) 11.00 H (1.4-6.5) 10^3/uL Band Neutrophils # 0.8 H (0.0-0.3) 10^3/uL Lymphocytes # (Manual) 1.55 (1.20-3.80) 10^3/uL Abs Atypical Lymphs Man 0.15 Monocytes # (Manual) 2.01 H (0.30-0.80) 10^3/uL Eosinophils # (Manual) 0.00 (0.00-0.70) 10^3/uL Basophils # (Manual) 0.00 (0.00-0.10) 10^3/uL Sodium 140 (136-145) mmol/L Potassium 3.4 L (3.5-5.1) mmol/L Chloride 105 (98-107) mmol/L Carbon Dioxide 24.3 (21.0-32.0) mmol/L Anion Gap 14.1 BUN 11.0 (7.0-18.0) mg/dL Creatinine 0.89 (0.70-1.30) mg/dL Est GFR ( Amer) >60 (>=60) Est GFR (Non-Af Amer) >60 (>=60) BUN/Creatinine Ratio 12.4 Glucose 105 (74-106) mg/dL Calcium 8.3 L (8.5-10.1) mg/dL Adenovirus (PCR) Not detected (NOT DETECTE) C. pneumoniae DNA (PCR) Not detected (NOT DETECTE) Coronavirus Type OC43 Not detected (NOT DETECTE) Coronavirus Type HKU1 Not detected (NOT DETECTE) Coronavirus Type 229E Not detected (NOT DETECTE) Coronavirus Type NL63 Not detected (NOT DETECTE) Human Metapneumovir PCR Not detected (NOT DETECTE) M. pneumoniae (PCR) Not detected (NOT DETECTE) Parainfluenza PCR Not detected (NOT DETECTE) Parainfluenza 2 (PCR) Not detected (NOT DETECTE) Parainfluenza 3 (PCR) Not detected (NOT DETECTE) Parainfluenza 4 (PCR) Not detected (NOT DETECTE) RSV (RT-PCR) Not detected (NOT DETECTE) Entero/Rhino (PCR) Not detected (NOT DETECTE) SARS-CoV-2 (PCR) Not detected (NOT DETECTE) Bordetella pertussis (PCR) Not detected (NOT DETECTE) B parapertussis DNA PCR Not detected (NOT DETECTE) Influenza Type A (PCR) Not detected (NOT DETECTE) Influenza Type B (PCR) Not detected (NOT DETECTE) Discharge Plan Discharge Stand Alone Forms: Portal Instructions Chief Complaint: Fever Clinical Impression: Fever Patient Disposition: Home, Self-Care Prescriptions / Home Meds: No Action No Known Home Medications Print Language: Macedonian Instructions: Fever in Adults (ED) Referrals: Physician,Non-Staff, MD [Primary Care Provider] - 1 week Discharge Date/Time: 03/08/24 03:52
[2024-03-08 02:22] LABS: Hematocrit 43.6 % (42.0-54.0); Hemoglobin 14.6 g/dL (14.0-18.0); Mean Corpuscular HGB Conc 33.5 g/dL (29.9-35.2); Mean Corpuscular Hemoglobin 30.7 pg (25.9-34.0); Mean Corpuscular Volume 91.6 fL (80.0-94.0); Mean Platelet Volume 9.8 fL (9.5-13.5); Platelet Count 180 10^3/uL (150-450); Red Blood Count 4.76 10^6/uL (4.70-6.10); Red Cell Distribution Width 13.7 % (11.0-15.0); White Blood Count 15.5 10^3/uL (4.0-11.0)
[2024-03-08 02:35] LABS: Anion Gap 14.1; BUN Creatinine Ratio 12.4; Calcium 8.3 mg/dL (8.5-10.1); Carbon Dioxide 24.3 mmol/L (21.0-32.0); Chloride 105 mmol/L (98-107); Estimated GFR (African America >60 (>=60); Estimated GFR (Non-African Ame >60 (>=60); Glucose 105 mg/dL (74-106); Potassium 3.4 mmol/L (3.5-5.1); Sodium 140 mmol/L (136-145)
[2024-03-08 03:03] LABS: Atypical Lymphocytes Abs Man 0.15; Band Neutrophils Absolute 0.8 10^3/uL (0.0-0.3); Lymphocytes Absolute Manual 1.55 10^3/uL (1.20-3.80); Monocytes Absolute Manual 2.01 10^3/uL (0.30-0.80)
== END 2024-03-08 03:52 | disposition home or self-care (01) ==
PROVIDERS: Emergency Provider Internal Medicine
DX: R50.9 Fever, unspecified (principal); F17.210 Nicotine dependence, cigarettes, uncomplicated; Z20.822 Contact with and (suspected) exposure to COVID-19
CPT/HCPCS: 0202U; 36415; 80048; 85007; 85027; 99283

== ENCOUNTER 2025-01-30 15:57 | Emergency (ER) | payer SELFPAY ==
[2025-01-30 16:07] VITALS: BP 165/97; PULSE 110; TEMP 37.1; O2SAT 95; BMI 35.8
[2025-01-30] MEDS: ONDANSETRON PF 4 MG/2 ML VIAL IV (18:07)
[2025-01-30] MEDS: NITROGLYCERIN 0.4 MG BOTTLE SL (18:07)
[2025-01-30] MEDS: GLUCAGON 1 MG/ML VIAL IV (18:10)
--- NOTE | 2025-01-30 18:55 | ED.GENADUL1 ---
HPI HPI - General Adult General Chief complaint: Extremity Problem, Nontraumatic Stated complaint: PILL STUCK IN THROAT Time Seen by Provider: 01/30/25 17:10 Source: patient Mode of arrival: walk-in History of Present Illness HPI narrative: Patient is a 39-year-old male who is presenting with concern for a Cilias pill that is stuck in his lower esophagus. Patient swallowed the pill around 3:00 this afternoon. Patient is not been able to tolerate his secretions or drinking water since. Patient drank water very earlier in the morning and had no difficulty when he woke up from sleeping around 2 or 3 AM. Patient had a grilled cheese and tomato soup last night with no difficulty. Patient states he takes Cialis daily to help with his erection lasting longer. Patient has no trauma. He has no headache or neck pain. No fever or chills. Patient has no abdominal distention, no other acute complaints. Patient says that he had a food bolus approximately 5 years ago and had a EGD at [facility] To have it removed. Patient says that he was due to have another EGD but lost his insurance in November so he never had it done. Patient has been asked multiple times if he had any other food to eat today, and he states the only thing he had this morning was water and taking his Cialis pill. The pill is approximately 0.5 cm x 0.5 cm in size, circular. Patient says he has not been able to hold his secretions and or any water since he took the pill at approximately [address] to the ER. Patient was given a small sip of diet Pepsi during my HPI and physical exam, and within 1 minute patient coughed/spit up/emesis and entire amount of 5 cc of diet Pepsi that he drank. Patient feels like the pill is stuck down at the distal third of his lower esophagus. All systems are negative except as noted/marked. All systems reviewed and otherwise negative. Nurses note and vital signs reviewed and patient is not hypoxic. Patient has stuttering at baseline. General: The patient appears well and in no apparent distress. Patient is resting comfortably on cart. Patient is not toxic, lethargic, or listless Skin: Warm, dry, no pallor noted. There is no rash noted. No petechiae, purpura. Head: Normocephalic, atraumatic Eye: Normal conjunctiva, no drainage, EOMI. PERRL Ears, Nose, Mouth, and Throat: oral mucosa is moist. Nares patent. Mouth without vesicles. Cardiovascular: Regular Rate and Rhythm, no murmur, gallop, rub Respiratory: Patient is in no distress, no accessory muscle use, lungs are clear to auscultation, no wheezing, rales or rhonchi Back: non-tender, no CVA tenderness bilaterally to percussion. No CT LS midline pain GI: Mild midepigastric tenderness to palpation, no peritoneal signs, no flank pain, abdomen soft, otherwise no tenderness to palpation, no masses appreciated. No rebound, guarding, or rigidity noted. No distention Musculoskeletal: Patient has full range of motion of all of the extremities, no motor, sensory, or focal neurological deficits Neurological: A&O x4, normal speech Psychiatric: Cooperative Related Data Home Medications ?Medication ?Instructions ?Recorded ?Confirmed No Known Home Medications 06/29/23 03/08/24 Allergies Allergy/AdvReac Type Severity Reaction Status Date / Time No Known Drug Allergies Allergy Verified 03/08/24 01:22 Opioid HPI Opioid Management Most Recent Opioid Data: Last Pain Scale 5 03/06/24 22:21 03/06/24 [facility] PFS Social History Smoking status: Current some day smoker Exam Constitutional Vital Signs, click to edit/add: Last Vital Signs Temp 98.8 F 01/30/25 16:07 Pulse 110 H 01/30/25 16:07 Resp 18 01/30/25 16:07 BP 165/97 H 01/30/25 16:07 Pulse Ox 95 01/30/25 16:07 O2 Del Method Room Air 01/30/25 16:07 Course Vital Signs Vital signs: Vital Signs Temperature 98.8 F 01/30/25 16:07 Pulse Rate 110 H 01/30/25 16:07 Respiratory Rate 18 01/30/25 16:07 Blood Pressure 165/97 H 01/30/25 16:07 Pulse Oximetry 95 01/30/25 16:07 Oxygen Delivery Method Room Air 01/30/25 16:07 Temperature 98.8 F 01/30/25 16:07 Pulse Rate 110 H 01/30/25 16:07 Respiratory Rate 18 01/30/25 16:07 Blood Pressure 165/97 H 01/30/25 16:07 Pulse Oximetry 95 01/30/25 16:07 Oxygen Delivery Method Room Air 01/30/25 16:07 Medical Decision Making MDM Narrative Medical decision making narrative: Patient for the first 30 minutes had warm diet Pepsi that he was drinking with a hyperflexed position of his neck through a straw every 5 minutes. Patient was not able to pass the liquid at all. Patient also is spitting up his secretions every 2 or 3 minutes of clear secretions and sputum. After 30 minutes patient was given nitro, glucagon, and patient continued for another hour to do warm caffeine in a hyperflexed position with a straw. Patient at 1849 still is not able to tolerate his secretions or swallow the liquid. [address] Willson, surgeon on-call from [facility]. He does not perform EGDs and is not accepting transfer. I am now calling GI physician to see if they would except transfer to [facility] since patient cannot tolerate his secretions and most likely has some type of stricture at the distal esophagus. Multiple bedside visits have been done by myself to reassess the patient, make sure that he is drinking the warm caffeine in correct position, and reassessing the patient to see if he is able to swallow the liquid. Patient has been transition to Dr. Kulkarni for additional phone calls to GI physicians and help complete disposition. Critical care time 32 minutes exclusive from separate billable procedures that were performed. The following was considered in the determination of critical care but not limited to the level of medical decision making, intensive cardiac and/or respiratory monitoring, frequent vital sign monitoring, evaluation of laboratory studies, evaluation of radiographic studies, oxygen monitoring, and constant monitoring and speaking to family at bedside Discharge Plan Discharge Chief Complaint: Extremity Problem, Nontraumatic Clinical Impression: Food bolus obstruction of intestine, Esophageal stricture Patient Disposition: [facility]
[2025-01-30] MEDS: LORAZEPAM 2 MG/ML VIAL 1 MG IV (19:34)
[2025-01-30] MEDS: 0.9 % SODIUM CHLORIDE 1,000 ML 1000 ML IV (19:34)
--- NOTE | 2025-01-30 20:12 | ED.GENADUL1 ---
HPI HPI - General Adult General Chief complaint: Extremity Problem, Nontraumatic Stated complaint: PILL STUCK IN THROAT Time Seen by Provider: 01/30/25 19:45 Source: patient Mode of arrival: walk-in History of Present Illness HPI narrative: This 39-year-old male who has had an esophageal stricture requiring dilation in the past and food boluses was signed out to me at shift change. At 3 PM he got up and took his daily medications including the Cialis tablet. He has not been able to swallow his secretions since that time. He was given glucagon in the emergency department and nitroglycerin without significant improvement. Upon my arrival he is still spitting up his secretions. He was given IV fluids and IV Ativan without clinical improvement. Case was discussed with Dr Esquivel at [facility] who agreed to accept the patient for transfer and endoscopy tomorrow morning. Routine labs and chest x-ray were ordered. He has a normal white count and hemoglobin. Electrolytes are normal. 1 view chest x-ray was reviewed by myself and does not show any mediastinal widening infiltrate or other notable abnormalities. The patient was given additional dose of Reglan and Benadryl. He is not in any respiratory distress but still spitting up his secretions. The patient allegedly called [facility] he is told they have an oral surgeon and wishes to be released AGAINST MEDICAL ADVICE at this time. I explained to him that an oral surgeon is not what he needs to get an endoscopy he needs a general surgeon or manager business planning. He verbalizes understanding of this but request a copy of his records and signs out AGAINST MEDICAL ADVICE verbalizing the understanding of ongoing obstruction to his esophagus which can erode and cause him longstanding complications including but not limited to an infection in his chest or abdomen, permanent disability and . He is here with his parents who are not objecting to him signing out AGAINST MEDICAL ADVICE. Related Data Home Medications ?Medication ?Instructions ?Recorded ?Confirmed No Known Home Medications 06/29/23 03/08/24 Allergies Allergy/AdvReac Type Severity Reaction Status Date / Time No Known Drug Allergies Allergy Verified 03/08/24 01:22 Opioid HPI Opioid Management Most Recent Opioid Data: Last Pain Scale 5 03/06/24 22:21 03/06/24 PFSH PFSH Social History Smoking status: Current some day smoker Exam Constitutional Vital Signs, click to edit/add: Last Vital Signs Temp 98.8 F 01/30/25 16:07 Pulse 110 H 01/30/25 16:07 Resp 18 01/30/25 16:07 BP 165/97 H 01/30/25 16:07 Pulse Ox 95 01/30/25 16:07 O2 Del Method Room Air 01/30/25 16:07 Course Vital Signs Vital signs: Vital Signs Temperature 98.8 F 01/30/25 16:07 Pulse Rate 110 H 01/30/25 16:07 Respiratory Rate 18 01/30/25 16:07 Blood Pressure 165/97 H 01/30/25 16:07 Pulse Oximetry 95 01/30/25 16:07 Oxygen Delivery Method Room Air 01/30/25 16:07 Temperature 98.8 F 01/30/25 16:07 Pulse Rate 110 H 01/30/25 16:07 Respiratory Rate 18 01/30/25 16:07 Blood Pressure 165/97 H 01/30/25 16:07 Pulse Oximetry 95 01/30/25 16:07 Oxygen Delivery Method Room Air 01/30/25 16:07 Medical Decision Making Lab Data Labs: Lab Results 01/30/25 Range/Units 20:30 WBC 9.7 (4.0-11.0) 10^3/uL RBC 4.88 (4.70-6.10) 10^6/uL Hgb 15.0 (14.0-18.0) g/dL Hct 43.4 (42.0-54.0) % MCV 88.9 (80.0-94.0) fL MCH 30.7 (25.9-34.0) pg MCHC 34.6 (29.9-35.2) g/dL RDW 13.5 (11.0-15.0) % Plt Count 256 (150-450) 10^3/uL MPV 10.1 (9.5-13.5) fL Neut % (Auto) 74.1 (43.0-75.0) % Lymph % (Auto) 15.9 L (20.5-60.0) % [place] % (Auto) 8.4 (1.7-12.0) % Eos % (Auto) 0.7 L (0.9-7.0) % Baso % (Auto) 0.5 (0.2-2.0) % Neut # (Auto) 7.2 H (1.4-6.5) 10^3/uL Lymph # (Auto) 1.5 (1.2-3.8) 10^3/uL [place] # (Auto) 0.8 (0.3-0.8) 10^3/uL Eos # (Auto) 0.1 (0.0-0.7) 10^3/uL Baso # (Auto) 0.1 (0.0-0.1) 10^3/uL Abs Immat Gran (auto) 0.04 H (0.00-0.03) 10^3/uL Imm/Tot Granulo (auto) 0.4 (0.0-0.5) % PT 11.9 H (9.0-11.6) sec INR 1.14 Sodium 142 (136-145) mmol/L Potassium 3.5 (3.5-5.1) mmol/L Chloride 105 (98-107) mmol/L Carbon Dioxide 22.3 (21.0-32.0) mmol/L Anion Gap 18.2 BUN 10.0 (7.0-18.0) mg/dL Creatinine 1.01 (0.70-1.30) mg/dL Est GFR ( Amer) >60 (>=60 mL/min/1.73m^2) Est GFR (Non-Af Amer) >60 (>=60 mL/min/1.73m^2) BUN/Creatinine Ratio 9.9 Glucose 83 (74-106) mg/dL Calcium 8.8 (8.5-10.1) mg/dL Total Bilirubin 0.6 (0.2-1.0) mg/dL AST 84 H (15-37) U/L ALT 115 H (16-63) U/L Alkaline Phosphatase 74 (46-116) U/L Total Protein 7.8 (6.4-8.2) g/dL Albumin 4.0 (3.4-5.0) g/dL Globulin 3.8 g/dL Albumin/Globulin Ratio 1.1 Discharge Plan Discharge Stand Alone Forms: Portal Instructions Chief Complaint: Extremity Problem, Nontraumatic Clinical Impression: Food bolus obstruction of intestine, Esophageal stricture Patient Disposition: Left Against Medical Advice Time of Disposition Decision: 22:14 Condition: Fair Prescriptions / Home Meds: No Action No Known Home Medications Print Language: Irish Instructions: Esophageal Foreign Body (ED), Esophageal Stricture (ED) Referrals: BUDDY ROSA [Primary Care Provider] - 1 week
[2025-01-30] MEDS: lidocaine HCL 15 ML, MAG HYDROX/ALUMINUM HYD/SIMETH 30 ML, HYOSCYAMINE SULFATE 0.25 MG PO (20:20)
[2025-01-30 20:45] LABS: White Blood Count 9.7 10^3/uL (4.0-11.0)
[2025-01-30 20:46] LABS: Basophils Absolute Auto 0.1 10^3/uL (0.0-0.1); Basophils Percent Auto 0.5 % (0.2-2.0); Eosinophils Absolute Auto 0.1 10^3/uL (0.0-0.7); Eosinophils Percent Auto 0.7 % (0.9-7.0); Hematocrit 43.4 % (42.0-54.0); Immature Granulocytes Abs Auto 0.04 10^3/uL (0.00-0.03); Immature Granulocytes Pct Auto 0.4 % (0.0-0.5); Lymphocytes Absolute Auto 1.5 10^3/uL (1.2-3.8); Lymphocytes Percent Auto 15.9 % (20.5-60.0); Mean Corpuscular HGB Conc 34.6 g/dL (29.9-35.2); Mean Corpuscular Hemoglobin 30.7 pg (25.9-34.0); Mean Corpuscular Volume 88.9 fL (80.0-94.0); Mean Platelet Volume 10.1 fL (9.5-13.5); Monocytes Absolute Auto 0.8 10^3/uL (0.3-0.8); Monocytes Percent Auto 8.4 % (1.7-12.0); Neutrophils Absolute Auto 7.2 10^3/uL (1.4-6.5); Neutrophils Percent Auto 74.1 % (43.0-75.0); Platelet Count 256 10^3/uL (150-450); Red Blood Count 4.88 10^6/uL (4.70-6.10); Red Cell Distribution Width 13.5 % (11.0-15.0)
[2025-01-30 20:54] LABS: INR 1.14; Prothrombin Time 11.9 sec (9.0-11.6)
[2025-01-30 20:58] LABS: Alanine Aminotransferase 115 U/L (16-63); Albumin Globulin Ratio 1.1; Alkaline Phosphatase 74 U/L (46-116); Anion Gap 18.2; Aspartate Amino Transferase 84 U/L (15-37); BUN Creatinine Ratio 9.9; Bilirubin Total 0.6 mg/dL (0.2-1.0); Calcium 8.8 mg/dL (8.5-10.1); Carbon Dioxide 22.3 mmol/L (21.0-32.0); Chloride 105 mmol/L (98-107); Estimated GFR (African America >60 (>=60 mL/min/1.73m^2); Estimated GFR (Non-African Ame >60 (>=60 mL/min/1.73m^2); Globulin 3.8 g/dL; Glucose 83 mg/dL (74-106); Potassium 3.5 mmol/L (3.5-5.1); Sodium 142 mmol/L (136-145); Total Protein 7.8 g/dL (6.4-8.2)
[2025-01-30] MEDS: METOCLOPRAMIDE HCL 10 MG/2 ML VIAL IVP (21:58)
[2025-01-30] MEDS: DIPHENHYDRAMINE HCL 50 MG/ML VIAL 12.5 MG IVP (21:58)
--- NOTE | 2025-01-30 22:23 | PC.NURSE ---
i was present in this patient's room when Dr Kulkarni explained to this patient about his risks of leaving AMA, this patient verbalized yes to understanding his risk of leaving AMA. this patient did sign and and printed his name of the AMA form
== END 2025-01-30 22:25 | disposition left against medical advice (07) ==
PROVIDERS: Emergency Provider Emergency Medicine; PCP Family Medicine
DX: T18.9XXA Foreign body of alimentary tract, part unspecified, initial encounter (principal); Z53.29 Procedure and treatment not carried out because of patient's decision for other reasons; K22.2 Esophageal obstruction; W44.F3XA Food entering into or through a natural orifice, initial encounter; F17.200 Nicotine dependence, unspecified, uncomplicated
CPT/HCPCS: 36415; 71045; 80053; 85025; 85610; 96374; 96375; 99284; J1200; J1610; J2060; J2405; J2765